=== PATIENT | female | born 1950 | race Caucasian/White ===

== ENCOUNTER → 2016-05-23 | Outpatient (CLI) | payer BC | LOC: OD 08:10 | PROVIDERS: ATTEND Family Medicine | DX: R05 Cough (principal) | CPT/HCPCS: 71020 ==

== ENCOUNTER → 2017-02-26 | Outpatient (CLI) | payer BC ==
--- NOTE | 2017-02-26 16:38 | RADIOLOGY REPORT (SQ) ---
EXAM DESCRIPTION: CHEST PA/LATERAL COMPLETED DATE/TIME: 02/26/2017 4:14 pm REASON FOR STUDY: COUGH COMPARISON: 05/23/2016. EXAM PARAMETERS: NUMBER OF VIEWS: two views TECHNIQUE: Digital Frontal and Lateral radiographic views of the chest acquired. RADIATION DOSE: NA LIMITATIONS: none FINDINGS: LUNGS AND PLEURA: No opacities, masses or pneumothorax. No pleural effusion. MEDIASTINUM AND HILAR STRUCTURES: No masses or contour abnormalities. HEART AND VASCULAR STRUCTURES: Heart normal size. No evidence for failure. BONES: No acute findings. HARDWARE: None in the chest. OTHER: No other significant finding. IMPRESSION: NO SIGNIFICANT RADIOGRAPHIC FINDING IN THE CHEST. TECHNICAL DOCUMENTATION: JOB ID: [id number] [employer]- All Rights Reserved
== END ==
LOC: OD 16:00
PROVIDERS: ATTEND Family Medicine
DX: R05 Cough (principal)
CPT/HCPCS: 71020

== ENCOUNTER → 2017-03-11 | Outpatient (CLI) | payer BC ==
--- NOTE | 2017-03-11 12:16 | RADIOLOGY REPORT (SQ) ---
EXAM DESCRIPTION: CT CHEST WITH COMPLETED DATE/TIME: 03/11/2017 10:26 am REASON FOR STUDY: J45.909 UNSPECIFIED ASTHMA,UNCOMPLICATED R05 COUGH J45.909 UNSPECIFIED ASTHMA, UNCOMPLICATED R05 COUGH COMPARISON: Chest x-ray 02/26/2017 TECHNIQUE: CT scan of the chest performed using helical scanning technique with dynamic intravenous contrast injection. Images reviewed with lung, soft tissue and bone windows. Reconstructed coronal and sagittal MPR images reviewed. All images stored on PACS. All CT scanners at this facility use dose modulation, iterative reconstruction, and/or weight based dosing when appropriate to reduce radiation dose to as low as reasonably achievable (ALARA). [facility]: Dose Right [facility]: CareDose [facility]: Dose Right [facility]: Teradose 4D [facility]: [employer] CONTRAST TYPE AND DOSE: contrast/concentration: Isovue 370.00 mg/ml; Total Contrast Delivered: 80.0 ml; Total Saline Delivered: 55.0 ml RENAL FUNCTION: Creatinine 0.7 RADIATION DOSE: CT Rad equipment meets quality standard of care and radiation dose reduction techniques were employed. CTDIvol: 12.1 mGy. DLP: 436 mGy-cm. . LIMITATIONS: None. FINDINGS: LUNGS AND PLEURA: No opacities, nodules, masses. No pneumothorax. No effusions. HILAR AND MEDIASTINAL STRUCTURES: No identified masses or abnormal nodes. HEART AND VASCULAR STRUCTURES: No aneurysm or dissection. No central pulmonary emboli. No pericardial effusion. HARDWARE: None in the chest. UPPER ABDOMEN: No significant findings. Limited exam. THYROID AND OTHER SOFT TISSUES: No masses. No adenopathy. BONES: No significant finding. OTHER: No other significant finding. IMPRESSION: NORMAL CT OF THE CHEST WITH IV CONTRAST. TECHNICAL DOCUMENTATION: JOB ID: [id number] Quality ID # [id number]: Final reports with documentation of one or more dose reduction techniques (e.g., Automated exposure control, adjustment of the mA and /or kV according to patient size, use of iterative reconstruction technique) 2010 [employer]- All Rights Reserved <Electronically signed by REMIGIO TIPTON MD in [place]> 03/11/17 1216 [facility]
== END ==
LOC: RAD 09:58
PROVIDERS: ATTEND Nurse Practitioner Family
DX: J45.909 Unspecified asthma, uncomplicated (principal); R05 Cough
CPT/HCPCS: 71260; 82565

== ENCOUNTER → 2018-07-15 | Outpatient (CLI) | payer BC ==
--- NOTE | 2018-07-15 17:15 | RADIOLOGY REPORT (SQ) ---
EXAM DESCRIPTION: HAND RIGHT 3 VIEWS COMPLETED DATE/TIME: 07/15/2018 4:47 pm REASON FOR STUDY: RT HAND PAIN M79.641 PAIN IN RIGHT HAND COMPARISON: None. EXAM PARAMETERS: NUMBER OF VIEWS: Three views. TECHNIQUE: AP, lateral and oblique radiographic images acquired of the right hand. LIMITATIONS: None. FINDINGS: MINERALIZATION: Normal. BONES: No acute fracture or dislocation. No worrisome bone lesions. JOINTS: There is very mild bony spurring along the dorsal aspect of the carpometacarpal joints on lat eral view. No fracture. Mild osteoarthritis at the 3rd finger distal interphalangeal joint. SOFT TISSUES: No soft tissue swelling. No foreign body. OTHER: No other significant finding. IMPRESSION: No acute fracture or malalignment TECHNICAL DOCUMENTATION: JOB ID: [id number] [employer]- All Rights Reserved Reading location - IP/workstation name: [email or web address]
== END ==
LOC: OD 16:38
PROVIDERS: ATTEND Physician Assistant
DX: M79.641 Pain in right hand (principal)

== ENCOUNTER 2019-01-05 12:33 | Emergency (ER) | payer BC, MEDICARE ==
[2019-01-05] MEDS ORDERED: ASPIRIN 81 MG TABLET, CHEWABLE PO ONE (12:34)
[2019-01-05] MEDS ORDERED: NORMAL SALINE 1000 ML 1,000 ML IV ONE (12:51)
[2019-01-05 13:07] LABS: ABSOLUTE EOSINOPHILS # (AUTO) 0.1 10^3/uL (0.0-0.6); ABSOLUTE LYMPHOCYTES (AUTO) 2.1 10^3/uL (0.5-4.7); ABSOLUTE MONOCYTES (AUTO) 0.7 10^3/uL (0.1-1.4); ABSOLUTE NEUT (AUTO) 5.4 10^3/uL (1.7-8.2); BASOPHILS % (AUTO) 0.5 % (0-2); HEMATOCRIT 42.8 % (36.0-47.0); HEMOGLOBIN 14.3 g/dL (12.0-15.5); LYMPHOCYTES % (AUTO) 25.3 % (13-45); MEAN CORPUSCULAR HEMOGLOBIN 29.2 pg (27.0-33.4); MEAN CORPUSCULAR HGB CONC 33.4 g/dL (32.0-36.0); MEAN CORPUSCULAR VOLUME 87 fl (80-97); MONOCYTES % (AUTO) 7.9 % (3-13); PLATELET COUNT 223 10^3/uL (150-450); RED CELL DISTRIBUTION WIDTH 13.9 % (11.5-14.0); SEGMENTED NEUTROPHILS % (AUTO) 65.3 % (42-78); TOTAL CELLS COUNTED % (AUTO) 100 %; WHITE BLOOD COUNT 8.3 10^3/uL (4.0-10.5)
[2019-01-05 13:21] LABS: ALBUMIN 4.2 g/dL (3.5-5.0); ALKALINE PHOSPHATASE 103 U/L (38-126); ANION GAP 8 (5-19); ASPARTATE AMINO TRANSFERASE 24 U/L (14-36); BILIRUBIN,DIRECT 0.1 mg/dL (0.0-0.4); BILIRUBIN,TOTAL 0.5 mg/dL (0.2-1.3); BLOOD UREA NITROGEN 13 mg/dL (7-20); CALCIUM 9.6 mg/dL (8.4-10.2); CARBON DIOXIDE 28 mmol/L (22-30); CHLORIDE 104 mmol/L (98-107); CREATINE KINASE 75 U/L (30-135); GLUCOSE 114 mg/dL (75-110); TOTAL PROTEIN 7.3 g/dL (6.3-8.2)
--- NOTE | 2019-01-05 13:31 | RADIOLOGY REPORT (SQ) ---
EXAM DESCRIPTION: CT ABD/PELVIS NO ORAL OR IV COMPLETED DATE/TIME: 01/05/2019 1:19 pm REASON FOR STUDY: abd pain COMPARISON: None. TECHNIQUE: CT scan of the abdomen and pelvis performed without intravenous or oral contrast. Images reviewed with lung, soft tissue, and bone windows. Reconstructed coronal and sagittal MPR images revi ewed. All images stored on PACS. All CT scanners at this facility use dose modulation, iterative reconstruction, and/or weight based d osing when appropriate to reduce radiation dose to as low as reasonably achievable (ALARA). [facility]: Dose Right [facility]: CareDose [facility]: Dose Right [facility]: Teradose 4D [facility]: [employer] RADIATION DOSE: CT Rad equipment meets quality standard of care and radiation dose reduction techniq ues were employed. CTDIvol: 12.0 mGy. DLP: 622 mGy-cm.mGy. LIMITATIONS: None. FINDINGS: LOWER CHEST: No significant findings. No nodules or infiltrates. NON-CONTRASTED LIVER, SPLEEN, ADRENALS: Evaluation limited by lack of IV contrast. No identified sign ificant masses. PANCREAS: No masses. No peripancreatic inflammatory changes. GALLBLADDER: Surgically absent. RIGHT KIDNEY AND URETER: No suspicious masses. Assessment limited by lack of IV contrast. No signif icant calcifications. No hydronephrosis or hydroureter. LEFT KIDNEY AND URETER: No suspicious masses. Assessment limited by lack of IV contrast. No signifi cant calcifications. No hydronephrosis or hydroureter. AORTA AND RETROPERITONEUM: No aneurysm. No retroperitoneal masses or adenopathy. BOWEL AND PERITONEAL CAVITY: No obvious masses or inflammatory changes. No free fluid. APPENDIX: Surgically absent. PELVIS, BLADDER, AND ABDOMINAL WALL:No abnormal masses. No free fluid. Bladder normal. BONES: No significant findings. OTHER: No other significant finding. IMPRESSION: NO SIGNIFICANT OR ACUTE PROCESS IN THE ABDOMEN OR PELVIS. COMMENT: Quality ID # 436: Final reports with documentation of one or more dose reduction techniques (e.g., Automated exposure control, adjustment of the mA and/or kV according to patient size, use of iterative reconstruction technique) TECHNICAL DOCUMENTATION: JOB ID: [id number] [employer]- All Rights Reserved Reading location - IP/workstation name: [email or web address]
[2019-01-05 13:32] LABS: CREATINE KINASE MB 0.45 ng/mL (<4.55)
[2019-01-05 13:33] LABS: TROPONIN I < 0.012 ng/mL
--- NOTE | 2019-01-05 13:44 | RADIOLOGY REPORT (SQ) ---
EXAM DESCRIPTION: CHEST SINGLE VIEW COMPLETED DATE/TIME: 01/05/2019 1:19 pm REASON FOR STUDY: weak COMPARISON: 12/23/2011 EXAM PARAMETERS: NUMBER OF VIEWS: One view. TECHNIQUE: Single frontal radiographic view of the chest acquired. RADIATION DOSE: NA LIMITATIONS: None. FINDINGS: LUNGS AND PLEURA: No opacities, masses or pneumothorax. No pleural effusion. MEDIASTINUM AND HILAR STRUCTURES: No masses. Contour normal. HEART AND VASCULAR STRUCTURES: Heart normal in size. Normal vasculature. BONES: No acute findings. HARDWARE: None in the chest. OTHER: No other significant finding. IMPRESSION: No acute abnormality of the lungs in frontal projection. TECHNICAL DOCUMENTATION: JOB ID: [id number] [employer]- All Rights Reserved Reading location - IP/workstation name: [email or web address]
[2019-01-05 14:54] LABS: APPEARANCE,URINE CLEAR; BILIRUBIN,URINE NEGATIVE (NEGATIVE); COLOR,URINE YELLOW; GLUCOSE, URINE NEGATIVE (NEGATIVE); KETONES,URINE NEGATIVE (NEGATIVE); LEUKOCYTE ESTERASE,URINE NEGATIVE (NEGATIVE); NITRITE,URINE NEGATIVE (NEGATIVE); PROTEIN,URINE NEGATIVE (NEGATIVE); URINE SPECIFIC GRAVITY 1.011; UROBILINOGEN,URINE NEGATIVE mg/dL (<2.0)
--- NOTE | 2019-01-05 15:35 | ER Document Report ---
ED Dizziness/Weakness - General Chief Complaint: Abdominal Pain Stated Complaint: GENERAL WEAKNESS Time Seen by Provider: 01/05/19 12:49 Primary Care Provider: LORENZO CABRERA PA [Primary Care Provider] - Follow up as needed Notes: 68-year-old female presents to the ER complaining of weakness and just not feeling well. Patient stated she went to pentecostalism and felt the Holy Spirit come over her. She states since then she has been feeling well. She is felt weak and just anxious and not right. She has a history of vertigo and states the room is not spinning around her but at times she will feel dizzy and usually takes vertigo medicine. Patient states she is felt weak and jittery since. She is concerned that something may be wrong. She denies fever chills cough or sore throat denies chest pain or shortness of breath. TRAVEL OUTSIDE OF THE [place] IN LAST 30 DAYS: No - Related Data Allergies/Adverse Reactions: oxycodone HCl [From Percocet] Adverse Reaction (Severe, Verified 02/02/16 11:01) n/v, dizzy, shakey NSAIDS (Non-Steroidal Anti-Inflamma [Nsaids] Adverse Reaction (Intermediate, Verified 02/02/16 11:01) causes stomach ulcers Bleach Allergy (Severe, Uncoded 09/02/14 08:35) Closes up throat Pepper Allergy (Severe, Uncoded 09/02/14 08:36) Closes up throat Past Medical History - Social History Smoking Status: Unknown if Ever Smoked Family History: Other Patient has suicidal ideation: No Patient has homicidal ideation: No - Past Medical History Cardiac Medical History: Reports: Hx Hypercholesterolemia Denies: Hx Coronary Artery Disease, Hx Heart Attack, Hx Hypertension Pulmonary Medical History: Reports: Hx Asthma - Pt States "mild asthma, r/t environmental factors", Hx Pneumonia Denies: Hx Bronchitis, Hx COPD Neurological Medical History: Denies: Hx Cerebrovascular Accident, Hx Seizures Musculoskeletal Medical History: Reports Hx Arthritis - B/L HANDS, B/L KNEES, B/L TOES Past Surgical History: Reports: Hx Appendectomy, Hx Hysterectomy, Hx Orthopedic Surgery - R knee x2, Hx Thyroid Surgery - Partial thyroidectomy. Denies: Hx Pa cemaker - Immunizations Hx Diphtheria, Pertussis, Tetanus Vaccination: No Hx Pneumococcal Vaccination: 10/24/15 Review of Systems - Review of Systems Constitutional: Malaise, Weakness. denies: Chills, Fever EENT: No symptoms reported Cardiovascular: Dizziness. denies: Chest pain, Palpitations, Heart racing Respiratory: denies: Cough, Short of breath Gastrointestinal: Abdominal pain, Nausea. denies: Diarrhea, Vomiting Genitourinary: denies: Dysuria, Flank pain Neurological/Psychological: Anxiety. denies: Headaches -: Yes All other systems reviewed and negative Physical Exam - Vital signs Vitals: Resp Pulse Ox 22 H 96 01/05/19 12:39 01/05/19 12:39 - Notes Notes: GENERAL_APPEARANCE: well_nourished, alert, cooperative, anxious appearing VITALS: reviewed, see vital signs table. HEAD: no_swelling\\tenderness on the head. EYES: PERRL, EOMI, conjunctiva_clear. NOSE: no_nasal_discharge. MOUTH: (-)decreased moisture. THROAT: no_tonsilar_inflammation, no_airway_obstruction. no_lymphadenopathy NECK: supple, no_neck_tenderness, (-)thyromegaly. BACK: no_back_tenderness. CHEST_WALL: no_chest_tenderness. LUNGS: no_wheezing, no_rales, no_rhonchi, (-)accessory muscle use, good air exchange bilateral. HEART: normal_rate, normal_rhythm, normal_S1, normal_S2, (-)S3, (-)S4, no_murmur, no_rub. ABDOMEN: soft, epigastric right upper quadrant_abd_tenderness, (-)guarding, (- )rebound, no_organomegaly, no_abd_masses. EXTREMITIES: good pulses in all_extremities, no_swelling\\tenderness in the extremities, no_edema. SKIN: warm, dry, good_color, no_rash. MENTAL_STATUS: speech_clear, oriented_X_3, anxious_affect, responds_appropriately to questions. NEURO: Neg Motor or Sensory Deficits on exam, CN 2-12 intact, DTR 2+ symmetric x 4, No cerbellar signs Course - Re-evaluation Re-evalutation: 01/05/19 15:34 68-year-old female comes in complaining of some generalized weakness. Patient stated she feels anxious and jittery. states this all happened during pentecostalism. States that the patient passed out several times during prior. Sometimes she does do this. The patient states she just does not quite feel right and want to be checked out. On exam by the nurses she had some right upper quadrant epigastric abdominal pain on my exam was pretty soft and supple CT scan was negative. All the patient's blood work is normal. Urinalysis normal. I went back and spoke with the . He states sometimes she will get vertigo and will take the meclizine but she is out. Her neuro exam is completely normal. She is very bizarre and anxious here. Very jittery. I spoke with her about this. She wants something non-habit forming for anxiety. We will give her some Vistaril. And re-prescribe her some meclizine she has no unilateral neuro deficits. EKG troponin are negative. Suspicion is low for significant pathology. I spoke with him that not everything presents right away if she begins to feel poorly and does not improve in 24 to 48 hours she should return to be reevaluated. They verbalized understanding. - Vital Signs Vital signs: Temp Pulse Resp BP Pulse Ox 97.7 F 14 146/91 H 95 01/05/19 12:43 01/05/19 12:43 01/05/19 12:43 01/05/19 12:43 - Laboratory Result Diagrams: 01/05/19 12:38 01/05/19 12:38 Laboratory results interpreted by me: 01/05/19 12:38 Glucose 114 H - Diagnostic Test Radiology reviewed: Reports reviewed Radiology results interpreted by me: 01/05/19 15:30 Abdomen/Pelvis CT 01/05/19 12:50 IMPRESSION: NO SIGNIFICANT OR ACUTE PROCESS IN THE ABDOMEN OR PELVIS. Chest X-Ray 01/05/19 12:50 IMPRESSION: No acute abnormality of the lungs in frontal projection. - EKG Interpretation by Me Rate: Normal Rhythm: NSR Discharge - Discharge Clinical Impression: Malaise and fatigue, Anxiety Condition: Good Disposition: HOME, SELF-CARE Instructions: Abdominal Pain ([facility]), Chronic Fatigue Syndrome ([facility]), Fatigue ([facility]) Prescriptions: Meclizine HCl [Motion Relief] 25 mg PO QID PRN #30 tablet PRN Reason: Hydroxyzine Pamoate [Vistaril 50 mg Capsule] 50 mg PO QID PRN #30 capsule PRN Reason: Referrals: LORENZO CABRERA PA [Primary Care Provider] - Follow up as needed
[2019-01-05 15:41] VITALS: BP 139/68
--- NOTE | 2019-01-05 17:58 | EKG REPORT ---
SEVERITY:- BORDERLINE ECG - SINUS RHYTHM PROBABLE LEFT ATRIAL ABNORMALITY : Confirmed by: Damon Snell 05-Jan-2019 17:58:15
== END 2019-01-05 16:06 | disposition home or self-care (01) ==
LOC: ER 12:33
DX: R53.81 Other malaise (principal); R53.83 Other fatigue; F41.9 Anxiety disorder, unspecified; R10.9 Unspecified abdominal pain; R53.1 Weakness; R42 Dizziness and giddiness; R11.0 Nausea; Z79.899 Other long term (current) drug therapy
CPT/HCPCS: 93005; 36415; 82553; 82962; 82550; 83690; 85025; 80053; 81001; 84484; 71045; 74176; 93010; J7030

== ENCOUNTER → 2019-06-02 | Outpatient (CLI) | payer BC, MEDICARE ==
[2019-06-02 17:17] LABS: ABSOLUTE EOSINOPHILS # (AUTO) 0.1 10^3/uL (0.0-0.6); ABSOLUTE LYMPHOCYTES (AUTO) 2.6 10^3/uL (0.5-4.7); ABSOLUTE NEUT (AUTO) 7.7 10^3/uL (1.7-8.2); BASOPHILS % (AUTO) 0.4 % (0-2); EOSINOPHILS % (AUTO) 0.9 % (0-6); HEMATOCRIT 44.3 % (36.0-47.0); HEMOGLOBIN 14.7 g/dL (12.0-15.5); MEAN CORPUSCULAR HEMOGLOBIN 29.4 pg (27.0-33.4); MEAN CORPUSCULAR HGB CONC 33.3 g/dL (32.0-36.0); MEAN CORPUSCULAR VOLUME 88 fl (80-97); MONOCYTES % (AUTO) 8.7 % (3-13); PLATELET COUNT 261 10^3/uL (150-450); RED BLOOD COUNT 5.01 10^6/uL (3.72-5.28); RED CELL DISTRIBUTION WIDTH 14.3 % (11.5-14.0); TOTAL CELLS COUNTED % (AUTO) 100 %; WHITE BLOOD COUNT 11.4 10^3/uL (4.0-10.5)
[2019-06-02 17:37] LABS: ALBUMIN 4.4 g/dL (3.5-5.0); ALKALINE PHOSPHATASE 90 U/L (38-126); ANION GAP 9 (5-19); ASPARTATE AMINO TRANSFERASE 24 U/L (14-36); BILIRUBIN,TOTAL 0.3 mg/dL (0.2-1.3); BLOOD UREA NITROGEN 17 mg/dL (7-20); CARBON DIOXIDE 30 mmol/L (22-30); CHLORIDE 101 mmol/L (98-107); GLUCOSE 133 mg/dL (75-110); POTASSIUM 3.8 mmol/L (3.6-5.0); TOTAL PROTEIN 7.8 g/dL (6.3-8.2)
--- NOTE | 2019-06-02 18:03 | RADIOLOGY REPORT (SQ) ---
EXAM DESCRIPTION: CHEST PA/LATERAL COMPLETED DATE/TIME: 06/02/2019 5:14 pm REASON FOR STUDY: COUGH COMPARISON: 01/05/2019 EXAM PARAMETERS: NUMBER OF VIEWS: two views TECHNIQUE: Digital Frontal and Lateral radiographic views of the chest acquired. RADIATION DOSE: NA LIMITATIONS: none FINDINGS: LUNGS AND PLEURA: No opacities, masses or pneumothorax. No pleural effusion. MEDIASTINUM AND HILAR STRUCTURES: No masses or contour abnormalities. HEART AND VASCULAR STRUCTURES: Heart normal size. No evidence for failure. BONES: No acute findings. HARDWARE: None in the chest. OTHER: No other significant finding. IMPRESSION: NO SIGNIFICANT RADIOGRAPHIC FINDING IN THE CHEST. TECHNICAL DOCUMENTATION: JOB ID: [id number] 2010 [employer]- All Rights Reserved Reading location - IP/workstation name: [email or web address]
== END ==
LOC: OD 16:45
PROVIDERS: ATTEND Physician Assistant
DX: R05 Cough (principal)
CPT/HCPCS: 36415; 71046; 80053; 85025

== ENCOUNTER → 2019-11-24 | Outpatient (CLI) | payer BC, MEDICARE ==
--- NOTE | 2019-11-24 11:51 | RADIOLOGY REPORT (SQ) ---
EXAM DESCRIPTION: BARIUM SWALLOW ESOPHAGUS IMAGES COMPLETED DATE/TIME: 11/24/2019 10:44 am REASON FOR STUDY: R13.10 DYSPHAGIA, UNSPECIFIED R13.10 DYSPHAGIA, UNSPECIFIED COMPARISON: None. TECHNIQUE: Under fluoroscopic guidance, patient ingested effervescent granules followed by thick and thin barium. Fluoroscopic spot images and routine radiographic images acquired and stored on PACS. 12 MM BARIUM TABLET GIVEN: Yes. Extended delayed passage at the GE junction LIMITATIONS: None. FLUOROSCOPY TIME: FLUORO TIME: 2.5 minutes of fluoroscopy was used. 16 images saved to PACS. FINDINGS: NEUROMUSCULAR COORDINATION OF SWALLOW: Normal. No aspiration. ESOPHAGEAL MOTILITY: Normal peristalsis. No esophageal spasm. ESOPHAGEAL MUCOSA: Mucosal thickening in the proximal esophagus just distal to the cricopharyngeus ma y indicate esophagitis or possibly thrush, given the history of asthma and long-term inhaler use. St ricture of the distal esophagus just above the GE junction. GASTRO-ESOPHAGEAL JUNCTION: Small sliding hiatal hernia. No esophageal reflux seen. High-grade stri cture above the hiatal hernia which delayed passage of a 12 mm barium tablet throughout the procedure . NON-GI TRACT STRUCTURES: No significant finding. OTHER: No other significant finding. IMPRESSION: 1. HIGH-GRADE DISTAL ESOPHAGEAL STRICTURE ABOVE THE SMALL SLIDING HIATAL HERNIA WHICH D ELAYED PASSAGE OF A 12 MM BARIUM TABLET. RECOMMEND ENDOSCOPY FOR FURTHER EVALUATION AND/OR INTERVENT ION. 2. MILD MUCOSAL THICKENING OF THE PROXIMAL ESOPHAGUS POSSIBLY RELATED TO ESOPHAGITIS ALTHOUGH INFLAM MATORY CHANGE SUCH THRUSH SHOULD BE CONSIDERED IN THIS PATIENT WITH ASTHMA AND LONG-TERM INHALER U SE. RECOMMENDATION: ENDOSCOPY IS RECOMMENDED COMMENT: Quality ID 145: Final reports for procedures using fluoroscopy that document radiation exp osure indices, or exposure time and number of fluorographic images (if radiation exposure indices are not available) TECHNICAL DOCUMENTATION: JOB ID: [id number] 2010 [employer]- All Rights Reserved Reading location - IP/workstation name: [email or web address] [id number]
== END ==
LOC: RAD 08:46
PROVIDERS: ATTEND Physician Assistant
DX: K22.2 Esophageal obstruction (principal); K44.9 Diaphragmatic hernia without obstruction or gangrene; J45.909 Unspecified asthma, uncomplicated
CPT/HCPCS: 74220

== ENCOUNTER 2020-03-29 14:49 | Emergency (ER) | payer BC, MEDICARE ==
--- NOTE | 2020-03-29 16:39 | ER Document Report ---
ED Medical Screen (RME) - General Chief Complaint: Seizure Stated Complaint: ANXIETY/PANIC ATTACK Time Seen by Provider: 03/29/20 16:23 Primary Care Provider: VON RESTREPO MD [Primary Care Provider] - Follow up as needed Mode of Arrival: Wheelchair Information source: Patient, Relative Notes: HPI; 69-year-old female brought to emergency room by her for que stionable seizure. Patient has been having questionable seizure activity for the past several months but they have been getting more frequent and lasting longer over the past week. 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 She denies any incontinence. No loss of consciousness. No postictal activity. Patient states they usually last anywhere from 20 to 30 minutes and consist of fluttering in her chest along with her right hand and right leg shaking. States her neurologist in [place] has ordered a CT of the head but she has not had it done as of yet. PE: Alert and oriented x3. Answers questions appropriately. Lungs: Clear to auscultation without rales, rhonchi, wheezes. Heart: Regular rate rhythm wit hout murmurs, rubs, gallops. I have greeted and performed a rapid initial assessment of this patient. A comprehensive ED assessment and evaluation of the patient, analysis of test results and completion of the medical decision making process will be conducted by additional ED providers. I have specifically instructed the patient or family members with the patient to immediately return to any nursing staff should anything change in the patient's condition or with their chief complaint. TRAVEL OUTSIDE OF THE [place] IN LAST 30 DAYS: No - Related Data Allergies/Adverse Reactions: oxycodone HCl [From Percocet] Adverse Reaction (Severe, Verified 03/29/20 16:22) n/v, dizzy, shakey NSAIDS (Non-Steroidal Anti-Inflamma [Nsaids] Adverse Reaction (Intermediate, Verified 03/29/20 16:22) causes stomach ulcers Bleach Allergy (Severe, Uncoded 03/29/20 16:22) Closes up throat Pepper Allergy (Severe, Uncoded 03/29/20 16:22) Closes up throat Home Medications: seizure meds. Past Medical History - Past Medical History Cardiac Medical History: Reports: Hx Hypercholesterolemia Denies: Hx Coronary Artery Disease, Hx Heart Attack, Hx Hypertension Pulmonary Medical History: Reports: Hx Asthma - Pt States "mild asthma, r/t environmental factors", Hx Pneumonia Denies: Hx Bronchitis, Hx COPD Neurological Medical History: Denies: Hx Cerebrovascular Accident, Hx Seizures Musculoskeltal Medical History: Reports Hx Arthritis - B/L HANDS, B/L KNEES, B/L TOES Past Surgical History: Reports: Hx Appendectomy, Hx Hysterectomy, Hx Orthopedic Surgery - R knee x2, Hx Thyroid Surgery - Partial thyroidectomy. Denies: Hx Pacemaker - Immunizations Hx Diphtheria, Pertussis, Tetanus Vaccination: No Physical Exam - Vital signs Vitals: Temp Pulse Resp BP Pulse Ox 98.2 F 86 16 151/79 H 96 03/29/20 15:15 03/29/20 15:15 03/29/20 15:15 03/29/20 15:15 03/29/20 15:15 Course - Vital Signs Vital signs: Temp Pulse Resp BP Pulse Ox 98.2 F 86 16 151/79 H 96 03/29/20 15:15 03/29/20 15:15 03/29/20 15:15 03/29/20 15:15 03/29/20 15:15 Doctor's Discharge - Discharge Referrals: VON RESTREPO MD [Primary Care Provider] - Follow up as needed
--- NOTE | 2020-03-29 18:07 | RADIOLOGY REPORT (SQ) ---
EXAM DESCRIPTION: CT HEAD WITHOUT IMAGES COMPLETED DATE/TIME: 03/29/2020 5:51 pm REASON FOR STUDY: seizure COMPARISON: 2013 TECHNIQUE: Axial images acquired through the brain without intravenous contrast. Images reviewed wi th bone, brain and subdural windows. Additional sagittal and coronal reconstructions were generated. Images stored on PACS. All CT scanners at this facility use dose modulation, iterative reconstruction, and/or weight based d osing when appropriate to reduce radiation dose to as low as reasonably achievable (ALARA). [facility]: Dose Right [facility]: CareDose [facility]: Dose Right [facility]: Teradose 4D [facility]: [employer] RADIATION DOSE: CT Rad equipment meets quality standard of care and radiation dose reduction techniq ues were employed. CTDIvol: 48.8 mGy. DLP: 810 mGy-cm. mGy. LIMITATIONS: None. FINDINGS: VENTRICLES: Normal size and contour. CEREBRUM: No masses. No hemorrhage. No midline shift. No evidence for acute infarction. Normal gra y/white matter differentiation. No areas of low density in the white matter. CEREBELLUM: No masses. No hemorrhage. No alteration of density. No evidence for acute infarction. EXTRAAXIAL SPACES: No fluid collections. No masses. ORBITS AND GLOBE: No intra- or extraconal masses. Normal contour of globe without masses. CALVARIUM: No fracture. PARANASAL SINUSES: No fluid or mucosal thickening. SOFT TISSUES: No mass or hematoma. OTHER: No other significant finding. IMPRESSION: NORMAL BRAIN CT WITHOUT CONTRAST. EVIDENCE OF ACUTE STROKE: NO. COMMENT: Quality ID # 436: Final reports with documentation of one or more dose reduction techniques (e.g., Automated exposure control, adjustment of the mA and/or kV according to patient size, use of iterative reconstruction technique) TECHNICAL DOCUMENTATION: JOB ID: [id number] 2010 [employer]- All Rights Reserved Reading location - IP/workstation name: [email or web address]
[2020-03-29 18:46] LABS: ABSOLUTE EOSINOPHILS # (AUTO) 0.3 10^3/uL (0.0-0.6); ABSOLUTE LYMPHOCYTES (AUTO) 2.6 10^3/uL (0.5-4.7); ABSOLUTE MONOCYTES (AUTO) 0.8 10^3/uL (0.1-1.4); ABSOLUTE NEUT (AUTO) 6.4 10^3/uL (1.7-8.2); BASOPHILS % (AUTO) 0.5 % (0-2); EOSINOPHILS % (AUTO) 2.6 % (0-6); HEMATOCRIT 40.3 % (36.0-47.0); HEMOGLOBIN 13.6 g/dL (12.0-15.5); LYMPHOCYTES % (AUTO) 25.7 % (13-45); MEAN CORPUSCULAR HEMOGLOBIN 29.3 pg (27.0-33.4); MEAN CORPUSCULAR HGB CONC 33.8 g/dL (32.0-36.0); MEAN CORPUSCULAR VOLUME 87 fl (80-97); MONOCYTES % (AUTO) 8.1 % (3-13); PLATELET COUNT 225 10^3/uL (150-450); RED BLOOD COUNT 4.66 10^6/uL (3.72-5.28); SEGMENTED NEUTROPHILS % (AUTO) 63.1 % (42-78); TOTAL CELLS COUNTED % (AUTO) 100 %; WHITE BLOOD COUNT 10.1 10^3/uL (4.0-10.5)
[2020-03-29 19:07] LABS: ALBUMIN 3.9 g/dL (3.5-5.0); ALKALINE PHOSPHATASE 109 U/L (38-126); ANION GAP 6 (5-19); ASPARTATE AMINO TRANSFERASE 19 U/L (14-36); BILIRUBIN,DIRECT 0.2 mg/dL (0.0-0.4); BILIRUBIN,TOTAL 0.3 mg/dL (0.2-1.3); BLOOD UREA NITROGEN 13 mg/dL (7-20); CALCIUM 8.8 mg/dL (8.4-10.2); CARBON DIOXIDE 26 mmol/L (22-30); CHLORIDE 108 mmol/L (98-107); GLUCOSE 91 mg/dL (75-110); POTASSIUM 3.9 mmol/L (3.6-5.0); TOTAL PROTEIN 6.9 g/dL (6.3-8.2)
--- NOTE | 2020-03-29 19:09 | ER Document Report ---
ED General - General Chief Complaint: Seizure Stated Complaint: ANXIETY/PANIC ATTACK Time Seen by Provider: 03/29/20 16:23 Primary Care Provider: VON RESTREPO MD [Primary Care Provider] - Follow up as needed Mode of Arrival: Wheelchair TRAVEL OUTSIDE OF THE [place] IN LAST 30 DAYS: No - HPI Notes: 69-year-old female presents following episodes of shaking. Patient has had these episodes of shaking ongoing for the past few months. It is noted that the episodes seem to be occurring more frequent. An episode happened today while in the primary care's office, and happened yesterday in the endocrine office. Patient states that she will feel a fluttering in her epigastric/chest area, she would then developed shaking in her hands which progresses to shaking of her arms, and eventually jerking her entire body. She states that she remains conscious during these episodes. Episodes last upwards of 30 minutes. Afterwards she feels tired. These episodes only happen when she is out in public, they have never happened at home. Patient has a telehealth visit with neurology and was told that these are likely seizures. She is not currently on any antiepileptics. Patient also cites multiple other ongoing medical problems including extreme insulin resistance, stating that a sugar of 100 is low for her. She is also undergoing work-up for adrenal insufficiency, she is doing a dexamethasone challenge tonight. Patient also references potentially shaking episodes might have started several months ago after a knee replacement surgery. - Related Data Allergies/Adverse Reactions: oxycodone HCl [From Percocet] Adverse Reaction (Severe, Verified 03/29/20 16:22) n/v, dizzy, shakey NSAIDS (Non-Steroidal Anti-Inflamma [Nsaids] Adverse Reaction (Intermediate, Verified 03/29/20 16:22) causes stomach ulcers Bleach Allergy (Severe, Uncoded 03/29/20 16:22) Closes up throat Pepper Allergy (Severe, Uncoded 03/29/20 16:22) Closes up throat Home Medications: seizure meds. Past Medical History - General Information source: Patient, Relative - Social History Smoking Status: Never Smoker Family History: Other Patient has homicidal ideation: No - Past Medical History Cardiac Medical History: Reports: Hx Hypercholesterolemia Denies: Hx Coronary Artery Disease, Hx Heart Attack, Hx Hypertension Pulmonary Medical History: Reports: Hx Asthma - Pt States "mild asthma, r/t environmental factors", Hx Pneumonia Denies: Hx Bronchitis, Hx COPD Neurological Medical History: Denies: Hx Cerebrovascular Accident, Hx Seizures Musculoskeletal Medical History: Reports Hx Arthritis - B/L HANDS, B/L KNEES, B/L TOES Past Surgical History: Reports: Hx Appendectomy, Hx Hysterectomy, Hx Orthopedic Surgery - R knee x2, Hx Thyroid Surgery - Partial thyroidectomy. Denies: Hx Pacemaker - Immunizations Hx Diphtheria, Pertussis, Tetanus Vaccination: No Hx Pneumococcal Vaccination: 10/24/15 Review of Systems - Review of Systems Constitutional: No symptoms reported EENT: No symptoms reported Cardiovascular: denies: Chest pain Respiratory: denies: Short of breath Gastrointestinal: denies: Abdominal pain Genitourinary: No symptoms reported Female Genitourinary: No symptoms reported Musculoskeletal: No symptoms reported Skin: No symptoms reported Hematologic/Lymphatic: No symptoms reported Neurological/Psychological: denies: Headaches Physical Exam - Vital signs Vitals: Temp Pulse Resp BP Pulse Ox 98.2 F 86 16 151/79 H 96 03/29/20 15:15 03/29/20 15:15 03/29/20 15:15 03/29/20 15:15 03/29/20 15:15 - General General appearance: Appears well, Alert In distress: None - HEENT Head: Normocephalic, Atraumatic Extraocular movements intact: Yes Pupils: PERRL - Respiratory Breath sounds: Normal - Cardiovascular Rhythm: Regular Heart sounds: Normal auscultation - Abdominal Tenderness: Nontender - Extremities General upper extremity: Normal ROM General lower extremity: Normal ROM - Neurological Neuro grossly intact: Yes Cognition: Normal Orientation: AAOx4 Cranial nerves: Normal Cerebellar coordination: Normal Motor strength normal: LUE, RUE, LLE, RLE Sensory: Normal - Psychological Associated symptoms: Normal affect - Skin Skin Temperature: Warm Course - Re-evaluation Re-evalutation: 69-year-old female with episodes of shaking ongoing for several months. Episode happened today in the primary care's office. Patient states she is conscious the entire time and is aware of what is happening, also seem to be only occu rring when she is out in public. At this time her and her 's description of events do not seem overtly consistent with true epileptic form activity. Discussed that potentially it is anxiety driven versus some other phenomenon. She had a laboratory evaluation through triage which was grossly unremarkable. She also had a head CT done which was negative for acute pathology. She is neurologically intact, hemodynamically stable. Discussed with her to continue the outpatient work-up that she is undergoing to help elucidate the cause of these shaking episodes. I would have a low suspicion that she would have any sort of metal toxicity, however encouraged her to ask her primary care doctor to follow-up with these levels as these episodes seem to have started after a knee replacement surgery. Return precautions given, stable time of discharge. - Vital Signs Vital signs: Temp Pulse Resp BP Pulse Ox 98.2 F 86 16 166/90 H 96 03/29/20 19:01 03/29/20 15:15 03/29/20 19:01 03/29/20 19:01 03/29/20 19:01 - Laboratory Results Result Diagrams: 03/29/20 18:14 03/29/20 18:14 Laboratory Results Interpreted: 03/29/20 18:14 Chloride 108 H Critical Laboratory Results Reviewed: No Critical Results - Radiology Results Critical Radiology Results Reviewed: No Critical Results - EKG Interpretation by Me Additional EKG results interpreted by me: EKG is interpreted by me. Sinus rhythm, rate 93. Narrow QRS, QTC within normal limits. No ST segment elevation or depression. Discharge - Discharge Clinical Impression: Episode of shaking Disposition: HOME, SELF-CARE Additional Instructions: Please do the cortisol suppression test tonight as planned. Please continue to follow-up with your doctors as there is more work-up that needs to be done to elucidate the reason for these episodes of shaking. Please try to follow-up with neurology. Also discussed potentially checking metal levels through your primary care. Return to the emergency department for any concerning worsening symptoms. Referrals: VON RESTRPEO MD [Primary Care Provider] - Follow up as needed
[2020-03-29 20:10] VITALS: BP 166/90
--- NOTE | 2020-03-29 23:23 | EKG REPORT ---
SEVERITY:- BORDERLINE ECG - SINUS RHYTHM BORDERLINE T WAVE ABNORMALITIES : Confirmed by: Damon Snell 29-Mar-2020 23:23:17
== END 2020-03-29 20:10 | disposition home or self-care (01) ==
LOC: ER 14:49
DX: F41.0 Panic disorder [episodic paroxysmal anxiety] (principal); F41.9 Anxiety disorder, unspecified; E88.81 Metabolic syndrome and other insulin resistance; Z91.048 Other nonmedicinal substance allergy status; Z91.018 Allergy to other foods
CPT/HCPCS: 36415; 70450; 80053; 84484; 85025; 93005; 93010; 99285